=== PATIENT | female | born 1985 | race American Indian/Alaskan Native ===

== ENCOUNTER 2020-05-26 10:17 | Outpatient (REF) | payer OTHER, SELFPAY ==
[2020-05-26 11:34] LABS: MANUAL DIFF FLAG NO
[2020-05-26 11:53] LABS: Basophils Percent Auto 0.5 % (0-2); Eosinophils Absolute Auto 0.1 X10*3/uL (0.0-0.4); Eosinophils Percent Auto 1.2 % (0-4); Hematocrit 35.3 % (37-47); Hemoglobin 11.2 g/dl (12.0-16.0); Imm Gran Abs Auto 0.01 X10*3/uL (0.00-0.03); Imm Gran Pct Auto 0.2 % (0.0-0.4); Lymphocytes Absolute Auto 1.8 X10*3/uL (1.2-4.9); Mean Corpuscular HGB Conc 31.7 g/dl (31.0-35.0); Mean Corpuscular Hemoglobin 28.9 pg (27.0-33.0); Mean Corpuscular Volume 91.2 fL (80-98); Mean Platelet Volume 9.4 fL (9.4-12.3); Monocytes Absolute Auto 0.7 X10*3/uL (0.1-1.2); Monocytes Percent Auto 11.1 % (2-11); Neutrophils Absolute Auto 3.9 X10*3/uL (2.0-8.3); Platelet Count 252 X10*3/uL (160-400); Red Blood Count 3.87 X10*6/uL (4.20-5.50); Red Cell Distribution Width 13.4 % (11.0-16.0); White Blood Count 6.5 X10*3/uL (4.8-10.8)
[2020-05-26 11:59] LABS: Alanine Aminotransferase 10 U/L (0-31); Albumin Level 4.3 g/dL (3.5-5.0); Alkaline Phosphatase 64 U/L (39-117); Anion Gap 10 (12-20); Aspartate Amino Transferase 15 U/L (5-31); Bilirubin Total 0.6 mg/dL (0.0-1.0); Blood Urea Nitrogen 9 mg/dL (9-16); Calcium 9.2 mg/dL (8.4-10.2); Carbon Dioxide 28 mmol/L (22-29); Chloride 106 mmol/L (96-108); Cholesterol 161 mg/dL; Estimated Glomerular Filt Rate > 60; Glucose Fasting 87 mg/dL (60-99); HDL Cholesterol 66 mg/dL; LDL Cholesterol Calculated 84 mg/dl; Potassium 4.1 mmol/l (3.3-5.1); Sodium 140 mmol/L (135-145); Triglycerides 59 mg/dL
[2020-05-26 12:20] LABS: TSH reflex Free T4 0.26 mIU/mL (0.32-4.0)
[2020-05-26 12:39] LABS: Estimated Average Glucose 85 mg/dL; Hemoglobin A1c % 4.6 %
[2020-05-26 13:04] LABS: Free T4 (Free Thyroxine) 0.98 ng/dL (0.71-1.85)
== END 2020-05-26 10:18 | disposition home or self-care (01) ==
LOC: HO.LAB 10:17
PROVIDERS: PCP Physician Assistant; Visit Provider Physician Assistant
DX: Z00.00 Encounter for general adult medical examination without abnormal findings (principal); R56.9 Unspecified convulsions; R55 Syncope and collapse; Z13.29 Encounter for screening for other suspected endocrine disorder; Z13.1 Encounter for screening for diabetes mellitus
CPT/HCPCS: 36415; 80053; 80061; 83036; 84439; 84443; 85025

== ENCOUNTER 2021-01-08 09:54 | Outpatient (REF) | payer OTHER, SELFPAY ==
[2021-01-08 10:43] LABS: MANUAL DIFF FLAG NO
[2021-01-08 10:46] LABS: Basophils Percent Auto 0.4 % (0-2); Eosinophils Absolute Auto 0.1 X10*3/uL (0.0-0.4); Eosinophils Percent Auto 0.9 % (0-4); Hematocrit 32.4 % (37-47); Hemoglobin 9.9 g/dl (12.0-16.0); Imm Gran Abs Auto 0.01 X10*3/uL (0.00-0.03); Imm Gran Pct Auto 0.1 % (0.0-0.4); Lymphocytes Absolute Auto 1.6 X10*3/uL (1.2-4.9); Lymphocytes Percent Auto 20.4 % (20-40); Mean Corpuscular HGB Conc 30.6 g/dl (31.0-35.0); Mean Corpuscular Hemoglobin 25.8 pg (27.0-33.0); Mean Corpuscular Volume 84.6 fL (80-98); Mean Platelet Volume 9.2 fL (9.4-12.3); Monocytes Absolute Auto 0.9 X10*3/uL (0.1-1.2); Monocytes Percent Auto 10.9 % (2-11); Neutrophils Absolute Auto 5.3 X10*3/uL (2.0-8.3); Neutrophils Percent Auto 67.3 % (45-73); Platelet Count 319 X10*3/uL (160-400); Red Blood Count 3.83 X10*6/uL (4.20-5.50); Red Cell Distribution Width 13.3 % (11.0-16.0); White Blood Count 7.9 X10*3/uL (4.8-10.8)
[2021-01-08 11:10] LABS: Anion Gap 10 (12-20); Blood Urea Nitrogen 10 mg/dL (9-16); Carbon Dioxide 27 mmol/L (22-29); Chloride 105 mmol/L (96-108); Estimated Glomerular Filt Rate > 60; Glucose Random 88 mg/dL (60-115); Potassium 4.4 mmol/L (3.3-5.1); Sodium 138 mmol/L (135-145)
== END 2021-01-08 09:55 | disposition home or self-care (01) ==
LOC: HO.LAB 09:54
PROVIDERS: PCP Physician Assistant; Visit Provider Internal Medicine
DX: Z00.00 Encounter for general adult medical examination without abnormal findings (principal); R51.9 Headache, unspecified
CPT/HCPCS: 36415; 80048; 85025

== ENCOUNTER 2021-02-22 14:44 | Outpatient (REF) | payer OTHER, SELFPAY ==
[2021-02-22 15:40] LABS: Hematocrit 30.7 % (37-47); Hemoglobin 9.4 g/dl (12.0-16.0); Mean Corpuscular HGB Conc 30.6 g/dl (31.0-35.0); Mean Corpuscular Hemoglobin 24.9 pg (27.0-33.0); Mean Corpuscular Volume 81.4 fL (80-98); Platelet Count 356 X10*3/uL (160-400); Red Blood Count 3.77 X10*6/uL (4.20-5.50); Red Cell Distribution Width 13.8 % (11.0-16.0); White Blood Count 6.4 X10*3/uL (4.8-10.8)
[2021-02-22 15:56] LABS: Anion Gap 12 (12-20); Blood Urea Nitrogen 8 mg/dL (9-16); Calcium 9.3 mg/dL (8.4-10.2); Carbon Dioxide 25 mmol/L (22-29); Chloride 106 mmol/L (96-108); Estimated Glomerular Filt Rate > 60; Glucose Random 89 mg/dL (60-115); Iron 25 mcg/dL (30-160); Percent Iron Saturation 5 % (15-50); Potassium 4.5 mmol/L (3.3-5.1); Sodium 138 mmol/L (135-145); Total Iron Binding Capacity 526 mcg/dL (228-428); Unsaturated Iron Binding 501 ug/dL
[2021-02-22 16:17] LABS: TSH reflex Free T4 1.02 uIU/mL (0.32-4.0); Vitamin D 25-OH Total 33.4 ng/mL (>30)
== END 2021-02-22 14:45 | disposition home or self-care (01) ==
LOC: HO.LAB 14:44
PROVIDERS: PCP Physician Assistant; Visit Provider Physician Assistant
DX: D50.9 Iron deficiency anemia, unspecified (principal); D64.9 Anemia, unspecified; I10 Essential (primary) hypertension; E16.2 Hypoglycemia, unspecified; Z98.84 Bariatric surgery status
CPT/HCPCS: 36415; 80048; 82306; 83540; 84443; 85027

== ENCOUNTER 2021-02-23 09:03 | Outpatient (REF) | payer OTHER, SELFPAY ==
--- NOTE | ~2021-02-23 | CT_ITS ---
EXAMINATION: CT ABDOMEN AND PELVIS WITH CONTRAST CLINICAL INFORMATION: Epigastric pain COMPARISON: None TECHNIQUE: Multidetector volumetric images were obtained from the superior aspect of the liver through the pubic symphysis following administration 85 mL of Omnipaque 350 intravenous contrast. Sagittal and coronal reformatted images were obtained on the technologist's workstation. Oral contrast: No This CT examination was performed using dose optimization techniques as appropriate, variously including the following: *Automated exposure control *Adjustment of mA and/or kV according to patient size (this includes techniques or standardized protocols for targeted exams where dose is matched to indication/reason for exam; i.e. extremities or head) *Use of iterative reconstruction technique DLP: 399 mGy-cm FINDINGS: LUNG BASES: The visualized lung bases are unremarkable. LIVER, GALLBLADDER, AND BILIARY TREE: The liver is normal in size, shape, and attenuation. No focal hepatic lesion or biliary ductal dilatation is present. The gallbladder is unremarkable with no evidence of radiopaque gallstones, gallbladder wall thickening, or obvious pericholecystic inflammatory changes. PANCREAS: Unremarkable. SPLEEN: Unremarkable. ADRENAL GLANDS: Unremarkable. KIDNEYS AND URETERS: The kidneys are normal in size, shape, and attenuation. No hydronephrosis, hydroureter, or calculi seen. No perinephric stranding. BLADDER: Unremarkable. GASTROINTESTINAL TRACT: There is moderate scattered stool seen throughout the colon without significant distention. The small bowel loops are opacified with oral contrast and are nondilated. There are gastric sleeve surgery changes. No free air or free fluid.. ABDOMINAL WALL: No significant hernia is appreciated. LYMPH NODES: Normal. VASCULAR: Unremarkable. PELVIC VISCERA: The uterus is anteverted and appears unremarkable. No adnexal mass seen. There is minimal free fluid in the left cul-de-sac. OSSEOUS STRUCTURES: No lytic or sclerotic process seen. CT/CT abdomen pelvis w con IMPRESSION: Moderate constipation. No acute process. Evidence of gastric sleeve surgery.
[2021-02-23] MEDS: iohexoL 350 MG/ML 100 ML INFUS..BTL 85 ML IV (11:26)
== END 2021-02-23 09:04 | disposition home or self-care (01) ==
LOC: HO.CT 09:03
PROVIDERS: PCP Physician Assistant; Visit Provider Physician Assistant
DX: R10.13 Epigastric pain (principal); Z98.84 Bariatric surgery status
CPT/HCPCS: 74177; Q9967

== ENCOUNTER 2022-11-25 15:20 | Outpatient (REF) | payer OTHER, SELFPAY ==
--- NOTE | ~2022-11-25 | US_ITS ---
EXAM: US EXTREMITY NONVASCULAR LIMITED COMPARISON: None TECHNIQUE: Sonographic evaluation of the area of concern in the right upper arm was obtained. was performed. FINDINGS: Responding to the area of palpable concern is a 4.9 x 1.3 x 1.3 cm solid lesion isoechoic to the surrounding fat with no internal vascularity and smooth margins. US/US extremity nonvascular chahal IMPRESSION: 1. A 4.9 cm isoechoic mass with no internal vascularity and smooth margins may reflect a lipomatous lesion. Recommend correlation with physical exam and clinical history.
== END 2022-11-25 15:21 | disposition home or self-care (01) ==
LOC: HO.HMGCX 15:20
PROVIDERS: PCP Physician Assistant; Visit Provider Physician Assistant
DX: D17.20 Benign lipomatous neoplasm of skin and subcutaneous tissue of unspecified limb (principal)
CPT/HCPCS: 76882

== ENCOUNTER 2023-11-29 13:24 | Outpatient (AMB) | payer OTHER, SELFPAY ==
[2023-11-29 13:27] VITALS: BP 102/60; PULSE 57; O2SAT 100; BMI 31.1
--- NOTE | 2023-11-29 13:27 | A.OFFPC_ITS ---
Vital Signs 11/29/23 13:27 Height 5 ft 6 in Weight 192 lb 8 oz BMI 31.1 BP 102/60 Blood Pressure Location Lt brachial Position Sitting Pulse 57 Pulse Source Pulse Oximeter Pulse Oximetry (%) 100 Oxygen Delivery Method Room Air Intake Visit Reasons: pe Intake Note: Patient is here today for a physical. 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 Accompanied by: Self / Same As Patient Is last menstrual period known: Yes Last menstrual period: 10/31/23 Allergies No Known Allergies Allergy (Verified 11/29/23 13:29) Medication List - Last Reconciled 11/29/23 by Mayur Snyder PA-C cholecalciferol (vitamin D3) 75 mcg (3 x 25 mcg (1,000 unit)) PO DAILY 90 days lactulose 10 grams (15 mL) PO BEDTIME 10 days multivitamin (Daily Multi-Vitamin tablet) 1 tab PO DAILY Tobacco use date assessed: 11/29/23 Dental Screening Dental Screen Date: 11/29/23 Did you have a dental visit in the last 12 months?: Yes Did you have a dental problem in the last 6 months where you did not have access to dental care?: No Was dental information given to patient?: Patient has dentist HPI pe HPI Details Deanna is a 38 y/o F here today for a PE visit. ? Patient has a past medical history significant for history of bariatric surgery, former smoker .. Concerns-->?having increased anxiety and depression due to stress on her her personal life. She reports she is working and doing online school. She has a mother of multiple children. She otherwise denies any SI or HI. She is interested in mental health therapy. .. History of bariatric surgery: Has a history bariatric surgery in 2019, unfortunately gaining weight back. Today's BMI of 31.1 ? .. ? ASSEMBLER INSTALLER GENERAL: DOes go to a ASSEMBLER INSTALLER GENERAL at [facility] ( Dr. Aponte)- PAP in 08/2019 was normal.? Vaccine: UTD tdap, up-to-date with COVID vaccines ? PFSH Medical History (Updated 11/29/23 @ 14:07 by Mayur Snyder PA-C) Lipoma of upper arm Surgical History History of bariatric surgery History of section Family History Father No problems noted. Mother No problems noted. Maternal Aunt Breast cancer Maternal Grandfather Gastric cancer Social History (Updated 11/29/23 @ 13:42 by Mayur Snyder PA-C) Housing: Apartment Alcohol intake: current Alcohol intake frequency: holidays/special occasions only Patient Tobacco Use Status: Former Tobacco user Quit Date: 2018 e-Cigarette/Vaping Use: Never Used Second Hand Smoke Exposure: No Substance Use Type: Marijuana service: No Current occupational status: employed and student Current occupation: Title and Recording speciality Cognitive needs: No Hearing needs: No Vision needs: Yes (glasses) Female Reproductive History Menstrual Date of last menstrual period: 10/31/23 Questionnaire PHQ-9 Over the last 2 weeks, how often have you been bothered by any of the following problems? 1. Little interest or pleasure in doing things: nearly every day 2. Feeling down, depressed, or hopeless: not at all 3. Trouble falling or staying asleep, or sleeping too much: more than half the days 4. Feeling tired or having little energy: more than half the days 5. Poor appetite or overeating: more than half the days 6. Feeling bad about yourself - or that you are a failure or have let yourself or your family down: not at all 7. Trouble concentrating on things, such as reading the newspaper or watching television: not at all 8. Moving or speaking so slowly that other people could have noticed. Or the opposite - being so fidgety or restless that you have been moving around a lot more than usual: not at all 9. Thoughts that you would be better off or of hurting yourself in some way: not at all Total score: 9 Depression Screening Interpretation: Positive Depression Screening Follow-up: Existing condition and Community Mental Health Worker F/U Depression Screening Done: Yes 77169 - PHQ-9 Billing: Yes Source: Developed by Drs. Noah Greenwood, Esperanza Ayala, Isaac Robles and colleagues, with an educational meli from [employer]. Thrive Questionnaire Date Thrive assessed: 11/29/23 I am a: Patient What is your living situation today?: I have a steady place to live Within the past 12 months, did the food you bought not last and you didn't have the money to get more?: Never true Within the past 12 months, did you worry whether your food would run out before you got money to buy more?: Never true Do you have trouble paying for medicines?: No Do you have trouble getting transportation to medical appointments?: No Do you have trouble paying your heating and electricity bill?: No Do you have trouble taking care of your child, family member or friend?: No Do you have trouble with day-to-day activities such as bathing, preparing meals, shopping, managing finances, etc.?: No Are you currently unemployed and looking for a job?: No Are you interested in more education?: No Please select the resources that you would like help with: None Currently or been in a relationship where the following occur: no concerns reported THRIVE Score: 0 AUDIT C Alcohol Use Questionnaire (AUDIT-C) 1. How often do you have a drink containing alcohol?: Never 3. How often do you have six or more drinks on one occasion?: Never Total Score: 0 JHONY-7 AMB Questionnaire JHONY-7 Date JHONY - 7 assessed: 11/29/23 Feeling nervous, anxious, or on edge: 1 = Several days Not being able to stop or control worryin = Not at all Worrying too much about different things: 3 = Nearly every day Trouble relaxin = More than half the days Being so restless that it is hard to sit still: 0 = Not at all Becoming easily annoyed or irritable: 2 = More than half the days Feeling afraid as if something awful might happen: 0 = Not at all Total JHONY-7 score (0-4 normal; 5-9 mild; 10-14 moderate; 15-21 severe): 8 Source: Developed by Drs. Noah Greenwood, Esperanza Ayala, Isaac Robles and colleagues, with an educational meli from [employer]. JHONY-7 Assessment Billing JHONY-7 Assessment Tool: JHONY-7 Assessment 20195 Review of Systems Const Denies body aches, Denies chills, Denies excessive sweating, Denies fatigue, Denies fever(s) and Denies headache(s) Eyes Denies blurry vision ENT Denies dysphagia, Denies vertigo, Denies dizziness, Denies headache(s), Denies hearing loss and Denies tinnitus Card Denies chest pain, Denies chest pain with activity, Denies syncope, Denies irregular heart rhythm and Denies dyspnea Resp Denies chest congestion, Denies cough, Denies hemoptysis, Denies dyspnea and Denies wheezing GI Denies abdominal pain, Denies melena, Denies hematochezia, Denies coffee ground emesis, Denies dysphagia, Denies diarrhea, Denies nausea and Denies vomiting Denies urinary frequency, Denies dysuria, Denies urinary hesitancy and Denies urinary urgency Musc Denies arthralgias, Denies limited range of motion, Denies muscle cramps and Denies muscle weakness Skin/Breast Denies rash and Denies skin ulcer Neuro Denies Abnormal speech present, Denies confusion, Denies vertigo, Denies dizziness, Denies syncope, Denies headache(s), Denies memory loss and Denies seizure-like activity Psych Denies anxiety, Denies confusion, Denies depression, Denies memory loss, Denies panic attacks and Denies paranoia Endo Denies excessive sweating, Denies fatigue, Denies flushing, Denies polydipsia and Denies polyuria Aller/Immun Denies wheezing Physical exam (Primary Care) Vital Signs: Oxygen Delivery Method Room Air 11/29/23 13:27 BMI result Body Mass Index 31.1 Tobacco/Smoking Status: Tobacco use Status Tobacco use date assessed 11/29/23 11/29/23 13:30 Patient Tobacco Use Status Former Tobacco user 11/29/23 13:28 e-Cigarette/Vaping Use Never Used 11/29/23 13:28 Depression Screening Interpretation: Positive Depression Screening Follow-up: Existing condition and Community Mental Health Worker F/U Thrive Assessment: Date of Thrive Assessment Date Thrive assessed 11/22/22 11/29/23 13:28 Currently or been in a relationship where the following occur: no concerns reported Const General: cooperative, comfortable, no acute distress, alert and awake; No confusion Orientation/consciousness: oriented to person, oriented to place, patient oriented x3 and No confusion HENMT Head: Yes normocephalic Ears: external ears normal and TM's normal bilaterally Face and sinus: No sinus tenderness Mouth: Normal oral and palatal mucosa present and tongue normal Teeth and gingiva: dentition normal and gingiva normal Throat: Yes posterior oropharynx normal, Yes tonsils normal and Yes uvula midline Eyes Conjunctivae: conjunctivae normal Sclerae: sclerae normal Pupils: Equal, round and reactive pupils present EOM: EOMs intact bilaterally Direct Ophthalmoscopy: No no photophobia Neck Neck: Yes no lymphadenopathy, No tender and Yes no JVD Thyroid: Thyroid normal Carotids: no bruits Chest Chest palpation & inspection: no tenderness Resp Effort & Inspection: normal respiratory effort, no audible wheezes, not labored and no stridor Auscultation: no crackles, no rales, no rhonchi and no wheezes Cardio Jugular venous distension: no JVD Rate: regular rate, not bradycardic and not tachycardic Rhythm: regular rhythm Bruits: no carotid bruits Peripheral pulses: Peripheral pulses 2+ throughout GI Inspection: Yes normal to inspection, No abdominal wall ecchymosis and No visible herniation Palpation (GI): Soft to palpation, nontender, no guarding, not rigid and No hepatosplenomegaly present Auscultation: normoactive bowel sounds General: Yes no CVA tenderness Back/Spine/Pelvis Back: no CVA tenderness and No back tenderness Cervical Spine: cervical ROM normal Thoracic/Lumbar Spine: thoracic and lumbar spine normal to inspection, straight leg raise negative bilaterally, No thoraco-lumbar ROM limited and No lumbar spinal tenderness Skin Lesions: no lesions Rashes: no rashes Wounds: no wounds Neuro General: oriented to person, oriented to place, patient oriented x3, CN's II-XI intact bilaterally and No confusion Cranial nerves: Yes Equal, round and reactive pupils present and Yes Normal accommodation reflex present Cognition (Neuro): normal cognition Speech: No Abnormal speech present Gait exam (Neuro): Normal gait present Motor exam (neuro): 5/5 motor strength present throughout Extrem Right upper extremity: full ROM; no cyanosis Left upper extremity: full ROM; no cyanosis Right lower extremity: no edema Left lower extremity: no edema Psych Appearance: grossly normal Mental Status: mental status grossly normal Affect: normal affect Attitude: cooperative Thought process: Normal thought process present Assessment and Plan Assessment & Plan (1) Annual physical exam: Code(s): Z00.00 - Encounter for general adult medical examination without abnormal findings (2) JHONY (generalized anxiety disorder): Code(s): F41.1 - Generalized anxiety disorder Plan: Patient's JHONY-7 score positive for anxiety. She has not interested in medication though is interested in cognitive behavioral therapy. Will refer to counseling. (3) Screening for diabetes mellitus (DM): Code(s): Z13.1 - Encounter for screening for diabetes mellitus (4) History of bariatric surgery: Comment: Patient history of bariatric surgery in 2019 Code(s): Z98.84 - Bariatric surgery status Plan: She is status post bariatric surgery in 2019. Unfortunately gained weight back due to stress and anxiety. (5) MDD (major depressive disorder), recurrent episode, moderate: Code(s): F33.1 - Major depressive disorder, recurrent, moderate Plan: Patient's PHQ-9 score positive. She has been under a lot of stress which is causing her to be somewhat depressed. denies being suicidal or homicidal. Not interested medication at this time. He is interested in mental health therapy. Orders: Orders TSH reflex Free T4 Today R79.89 - Other specified abnormal findings of blood chemistry Complete Blood Count no Diff Today Z98.84 - Bariatric surgery status Comprehensive Ceres. Panel Fast Today Z13.1 - Encounter for screening for di abetes mellitus Referrals Counseling Referral F41.1 - Generalized anxiety disorder Patient Instructions: Goals: Control her stress, lose weight Barriers: Lack of time due to busy work and lifestyle, Coding Level of Care Code Est Pt Level 4 (07563) Est Pt Prev Care 18-39y(18135) Diagnoses Annual physical exam Z00.00 JHONY (generalized anxiety disorder) F41.1 Screening for diabetes mellitus (DM) Z13.1 History of bariatric surgery Z98.84 MDD (major depressive disorder), recurrent episode, moderate F33.1 Additional Codes JHONY-7 Assessment Billing - JHONY-7 Assessment Tool: JHONY-7 Assessment 95200 ([id number])
== END 2023-11-29 13:56 | disposition home or self-care (01) ==
PROVIDERS: Visit Provider Physician Assistant
DX: Z00.00 Encounter for general adult medical examination without abnormal findings (principal); F33.1 Major depressive disorder, recurrent, moderate; F41.1 Generalized anxiety disorder; Z98.84 Bariatric surgery status
CPT/HCPCS: 99213; 99395

== ENCOUNTER 2024-05-28 10:03 | Outpatient (REF) | payer OTHER, SELFPAY ==
[2024-05-28 11:33] LABS: Hematocrit 35.6 % (37.0-47.0); Hemoglobin 11.5 g/dl (12.0-16.0); Mean Corpuscular HGB Conc 32.3 g/dl (31.0-35.0); Mean Corpuscular Hemoglobin 28.4 pg (27.0-33.0); Mean Corpuscular Volume 87.9 fL (80.0-98.0); Mean Platelet Volume 8.9 fL (9.4-12.3); Platelet Count 348 X10*3/uL (160-400); Red Blood Count 4.05 X10*6/uL (4.20-5.50); Red Cell Distribution Width 13.4 % (11.0-16.0); White Blood Count 6.4 X10*3/uL (4.8-10.8)
[2024-05-28 12:15] LABS: Alanine Aminotransferase 11 U/L (0-31); Albumin Level 4.3 g/dL (3.5-5.0); Alkaline Phosphatase 61 U/L (39-117); Anion Gap 9 (12-20); Aspartate Amino Transferase 17 U/L (5-31); Bilirubin Total 0.6 mg/dL (0.0-1.0); Blood Urea Nitrogen 10 mg/dL (9-16); Calcium 9.1 mg/dL (8.4-10.2); Carbon Dioxide 27 mmol/L (22-29); Chloride 106 mmol/L (96-108); Estimated Glomerular Filt Rate > 60; Glucose Fasting 88 mg/dL (60-99); Iron 31 mcg/dL (30-160); Percent Iron Saturation 8 % (15-50); Potassium 3.8 mmol/L (3.3-5.1); Sodium 138 mmol/L (135-145); Total Iron Binding Capacity 390 mcg/dL (228-428); Total Protein 7.3 g/dL (6.5-8.0); Unsaturated Iron Binding 359 ug/dL
[2024-05-28 12:38] LABS: TSH reflex Free T4 1.48 uIU/mL (0.32-4.0); Vitamin D 25-OH Total 30.5 ng/mL (>30)
[2024-05-28 12:49] LABS: Folate 16.8 ng/mL (> or = 4.0); Vitamin B12 676 pg/mL (200-900)
[2024-05-31 01:12] LABS: Zinc 67 mcg/dL (60-130)
== END 2024-05-28 10:04 | disposition home or self-care (01) ==
LOC: HO.LAB 10:03
PROVIDERS: PCP Physician Assistant; Visit Provider Physician Assistant
DX: Z13.1 Encounter for screening for diabetes mellitus (principal); Z23 Encounter for immunization; D50.9 Iron deficiency anemia, unspecified; F33.1 Major depressive disorder, recurrent, moderate; E53.8 Deficiency of other specified B group vitamins; R79.89 Other specified abnormal findings of blood chemistry; Z98.84 Bariatric surgery status; D17.21 Benign lipomatous neoplasm of skin and subcutaneous tissue of right arm
CPT/HCPCS: 36415; 80053; 82306; 82607; 82746; 83540; 84443; 84630; 85027; 90471; 90656; 99212

== ENCOUNTER 2024-05-28 10:03 | Outpatient (AMB) | payer OTHER, SELFPAY ==
--- NOTE | 2024-05-28 10:15 | A.OFFPC_ITS ---
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 She has noted a lump over her right arm OVER THE LAST 3 YEARS. DID GET BARIATRIC SURGERY AND HAS LOST WEIGHT IN THE RIGHT UPPER ARM MASS HAS BECOME MORE NOTICEABLE. She is now interested in having the lump evaluated and removed by general surgeon. [facility] Medical History Lipoma of upper arm Surgical History History of bariatric surgery History of section Family History Father No problems noted. Mother No problems noted. Maternal Aunt Breast cancer Maternal Grandfather Gastric cancer Social History Housing: Apartment Alcohol intake: current Alcohol intake frequency: holidays/special occasions only Patient Tobacco Use Status: Former Tobacco user e-Cigarette/Vaping Use: Never Used Second Hand Smoke Exposure: No Substance Use Type: Marijuana service: No Current occupational status: employed and student Current occupation: Title and Recording speciality Cognitive needs: No Hearing needs: No Vision needs: Yes (glasses) Questionnaire Thrive Questionnaire Date Thrive assessed: 11/29/23 Are you currently unemployed and looking for a job?: No JHONY-7 AMB Questionnaire JHONY-7 Date JHONY - 7 assessed: 11/29/23 Source: Developed by Drs. Noah Greenwood, Esperanza Ayala, Isaac Robles and colleagues, with an educational meli from [employer]. Review of Systems Const Denies headache(s) Eyes Denies loss of vision ENT Denies vertigo, Denies dizziness, Denies headache(s) and Denies sore throat Card Denies chest pain, Denies leg edema and Denies lightheadedness Resp Denies cough, Denies hemoptysis and Denies wheezing GI Denies abdominal pain, Denies melena, Denies constipation, Denies diarrhea and Denies vomiting Denies urinary frequency, Denies dysuria and Denies urinary urgency Musc Denies arthralgias, Denies joint swelling, Denies numbness and Denies tingling Neuro Denies Abnormal speech present, Denies behavioral changes, Denies vertigo, Denies dizziness, Denies headache(s), Denies loss of vision, Denies memory loss, Denies numbness and Denies tingling Psych Denies anxiety, Denies behavioral changes, Denies depression, Denies memory loss and Denies panic attacks Mark/Lymph Denies easy bleeding and Denies easy bruising Aller/Immun Denies wheezing Physical exam (Primary Care) Vital Signs: Last Vital Signs Pulse 51 05/28/24 10:17 BP 106/68 05/28/24 10:17 Pulse Ox 98 05/28/24 10:17 Oxygen Delivery Method Room Air 05/28/24 10:17 BMI result Body Mass Index 29.9 Tobacco/Smoking Status: Tobacco use Status Tobacco use date assessed 11/29/23 05/28/24 10:21 Patient Tobacco Use Status Former Tobacco user 05/28/24 10:21 e-Cigarette/Vaping Use Never Used 05/28/24 10:21 Thrive Assessment: Date of Thrive Assessment Date Thrive assessed 11/29/23 05/28/24 10:21 Const General: healthy appearing, no acute distress, alert and awake Nutritional Appearance: well nourished Orientation/consciousness: oriented to person, oriented to place and oriented to time HENMT Ears: TM's normal bilaterally General nose exam: Normal nasal mucous membranes and turbinates present Eyes Conjunctivae: conjunctivae normal Sclerae: sclerae normal Pupils: Equal, round and reactive pupils present Neck Neck: Yes no lymphadenopathy and Yes no JVD Thyroid: Thyroid normal Carotids: no bruits Resp Effort & Inspection: normal respiratory effort and not tachypneic Auscultation: no crackles, no rales, no rhonchi and no wheezes Cardio Rate: regular rate Rhythm: regular rhythm Heart sounds: no murmurs and normal S1 and S2 GI Palpation (GI): Soft to palpation, nontender, no hepatomegaly and no splenomegaly Auscultation: normal bowel sounds Skin General skin exam: no rashes or lesions noted and dry skin Neuro General: oriented to person, oriented to place and oriented to time Cranial nerves: Yes Equal, round and reactive pupils present Speech: No Abnormal speech present Gait exam (Neuro): Normal gait present Motor exam (neuro): no tremor noted Extrem Right upper extremity: full ROM Left upper extremity: full ROM Shoulder/upper arm images: 2 1. LARGE SUBCUTANEOUS SOFT NONTENDER MASS NOTED OVER THE DELTOID REGION OF THE RIGHT UPPER ARM Right lower extremity: full ROM; no edema Left lower extremity: full ROM; no edema Psych Mental Status: mental status grossly normal Speech and movement: Normal speech and movement present Affect: normal affect Attitude: cooperative Thought process: Normal thought process present Office Procedures Flu Questionnaire Does the patient have a severe egg allergy?: No Does the patient have severe life threatening allergies?: No Does the patient have a fever or illness today?: No Has the patient ever had Guillain-Hays Syndrome?: No Has the patient ever had any past reaction to a flu shot?: No Immunizations Fluarix Triv [id number] (PF) 45 mcg (15 mcg x 3)/0.5 mL IM syringe Performing Provider: Mayur Snyder PA-C Performing Location[facility] [place] [facility] Administered by: MELANIE Alberts on 05/28/24 10:23 2 Dose Route Admin Location Dispensed Lot Number Expiration Date [employer] 0.5 mL IM Left Deltoid 0.5 mL [id number] 02/10/25 [id number] [place] 2 VIS Given Date VIS Provided VIS Publication Date 05/28/24 Single Vaccine 21 Eligibility Eligibility Date Funding Source Not [facility] Eligible 05/28/24 Private Coding Level of Care Code Est Pt Level 3 (72816) Diagnoses Lipoma of right upper extremity D17. Chronic fatigue R53.82 Fatigue type: chronic, unspecified Assessment & Plan Assessment & Plan (1) Lipoma of right upper extremity: Code(s): D17.21 - Benign lipomatous neoplasm of skin and subcutaneous tissue of right arm Category: Medical Plan: Patient has a large mass over her right upper arm consistent with a lipoma. Will send to general surgeon for evaluation perhaps removal. (2) Fatigue: Code(s): R53.83 - Other fatigue Category: Medical Qualifiers: Fatigue type: chronic, unspecified Qualified Code(s): R53.82 - Chronic fatigue, unspecified Plan: Patient does report having some chronic fatigue to which she would like to check her vitamin levels. Of note she has been under lot of stress due to being a full-time mom and student along with working part-time Orders: Orders 2 Influenza [id number] Immunization Today Z23 - Encounter for immunization IRON PROFILE Today D50.9 - Iron deficiency anemia, unspecified, D64.9 - Anemia, unspecified Vitamin D 25-OH Total Today F33.1 - Major depressive disorder, recurrent, moderate Zinc Today R79.89 - Other specified abnormal findings of blood chemistry Vitamin B12 and Folate Today D64.9 - Anemia, unspecified, E53.8 - Deficiency of other specified B group vitamins Referrals 2 General Surgery Referral D17.21 - Benign lipomatous neoplasm of skin and subcutaneous tissue of right arm
[2024-05-28 10:16] VITALS: BMI 29.9
[2024-05-28 10:17] VITALS: BP 106/68; PULSE 51; O2SAT 98; BMI 29.9
== END 2024-05-28 11:30 | disposition home or self-care (01) ==
PROVIDERS: PCP Physician Assistant; Visit Provider Physician Assistant
DX: D17.21 Benign lipomatous neoplasm of skin and subcutaneous tissue of right arm (principal); R53.82 Chronic fatigue, unspecified; Z23 Encounter for immunization

== ENCOUNTER 2024-06-07 09:52 | Outpatient (AMB) | payer OTHER, SELFPAY ==
--- NOTE | 2024-06-07 09:53 | MHC.OFFVIS ---
Vital Signs 06/07/24 09:59 Height 5 ft 6 in Weight 184 lb BMI 29.7 BP 134/63 Blood Pressure Location Lt brachial Position Sitting Pulse 67 Intake Visit Reasons: Lipoma right arm Intake Note: Patient is seen in office for evaluation of a lipoma of the right arm. Pt c/o: onset 3yrs, bigger since weight loss, denies pain, redness, discharge, no prior ones ref [place] [employer] Required: No Accompanied by: Self / Same As Patient Allergies No Known Allergies Allergy (Verified 06/07/24 09:58) Medication List - Last Reconciled 06/07/24 by Riccardo Huston MD cholecalciferol (vitamin D3) 75 mcg (3 x 25 mcg (1,000 unit)) PO DAILY 90 days lactulose 10 grams (15 mL) PO BEDTIME 10 days multivitamin (Daily Multi-Vitamin tablet) 1 tab PO DAILY HPI Comments Details: 38-year-old female patient presenting with a soft tissue mass of the right shoulder. The lump was initially noted a proximally 3 years ago and has gradually increased in size. She reports undergoing a sleeve gastrectomy in his subsequently lost a significant amount of weight. This makes the lump more noticeable as well. He has requested excision of this large lipoma. She denies a history of trauma or surgery in this location. [facility] Medical History Lipoma of upper arm Surgical History History of bariatric surgery History of section Family History Father No problems noted. Mother No problems noted. Maternal Aunt Breast cancer Maternal Grandfather Gastric cancer Social History Housing: Apartment Alcohol intake: current Alcohol intake frequency: holidays/special occasions only Patient Tobacco Use Status: Former Tobacco user e-Cigarette/Vaping Use: Never Used Second Hand Smoke Exposure: No Substance Use Type: Marijuana service: No Current occupational status: employed and student Current occupation: Title and Recording speciality Cognitive needs: No Hearing needs: No Vision needs: Yes (glasses) Review of Systems Const All systems reviewed & are unremarkable except as noted in HPI and below Denies chills, Denies fever(s), Denies headache(s), Denies poor appetite and Denies weakness ENT Denies headache(s) Card Denies chest pain, Denies irregular heart rhythm, Denies palpitations and Denies dyspnea Resp Denies cough, Denies excessive phlegm production and Denies dyspnea GI Denies abdominal pain, Denies bloating, Denies change in bowel habits, Denies constipation, Denies heartburn, Denies diarrhea, Denies nausea and Denies vomiting Denies urinary frequency Musc Denies back pain, Denies muscle weakness and Denies numbness Skin/Breast Denies changing lesions and Denies unusual bruising Neuro Denies headache(s), Denies numbness, Denies paresthesias and Denies weakness Psych Denies anxiety and Denies depression Endo Denies palpitations Mark/Lymph Denies lymphadenopathy Physical Exam Vital Signs: Last Vital Signs Pulse 67 06/07/24 09:59 BP 134/63 06/07/24 09:59 BMI result Body Mass Index 29.7 Const General: cooperative and no acute distress Nutritional Appearance: well nourished Orientation/consciousness: patient oriented x3 Limitations: no limitations HEENT Head: Yes normocephalic and Yes atraumatic Ears: hearing grossly normal bilaterally Resp Effort & Inspection: normal respiratory effort, no audible wheezes, no cough and no respiratory distress Cardio Jugular venous distension: no JVD GI Inspection: Yes normal to inspection Skin Other: Warm, dry, no rash Neuro General: patient oriented x3 Extrem General: Yes no clubbing, cyanosis or edema Shoulder/upper arm images: 1. 5 cm round, mobile soft tissue mass within the subcutaneous tissue, with no overlying skin changes. Findings suggestive of a lipoma. Assessment & Plan Assessment & Plan (1) Lipoma of right upper extremity: Code(s): D17.21 - Benign lipomatous neoplasm of skin and subcutaneous tissue of right arm Category: Medical Plan 38-year-old female patient with a soft tissue mass of the right shoulder which has increased in size especially after undergoing bariatric surgery. Patient has requested excision. On examination she is found to have a 5 cm soft tissue mass in the right shoulder over the deltoid muscle suggestive of a lipoma. I recommended an excision as a short-stay surgery and after discussion of the procedure, risks, and alternatives, she consents to excision of the right shoulder lipoma. Coding Level of Care Code New Pt Level 4 (97285) Diagnoses Lipoma of right upper extremity D17.21
[2024-06-07 09:59] VITALS: BP 134/63; PULSE 67; BMI 29.7
== END 2024-06-07 10:16 | disposition home or self-care (01) ==
PROVIDERS: PCP Physician Assistant; Visit Provider Surgery
DX: D17.21 Benign lipomatous neoplasm of skin and subcutaneous tissue of right arm (principal)
CPT/HCPCS: 99204

== ENCOUNTER → 2024-06-07 09:52 | Outpatient (BNVA) | payer OTHER, SELFPAY | PROVIDERS: PCP Physician Assistant; Visit Provider Surgery | DX: D17.21 Benign lipomatous neoplasm of skin and subcutaneous tissue of right arm (principal) | CPT/HCPCS: 99202 ==

== ENCOUNTER 2024-06-26 09:12 | Day surgery (SDC) | payer OTHER, SELFPAY ==
--- NOTE | 2024-06-25 10:34 | HO.ANESPROP2 ---
Documented by User: Lucy Gtz NP 06/25/24 10:35 HPI - Anesthesia Eval Consult details Narrative: 38yo F for Excision Lipoma on Shoulder PMFSH Active Problems Active Problems: All Active Problems Fatigue (Acute) Lipoma of right upper extremity (Acute) MDD (major depressive disorder), recurrent episode, moderate (Acute) JHONY (generalized anxiety disorder) (Acute) Constipation (Acute) History of bariatric surgery (Acute) Low TSH level (Acute) Low hemoglobin (Acute) Screening for hypothyroidism (Acute) Screening for diabetes mellitus (DM) (Acute) Annual physical exam (Acute) Past Medical History Medical History Lipoma of upper arm Family History Family History Father No problems noted. Mother No problems noted. Maternal Aunt Breast cancer Maternal Grandfather Gastric cancer Surgical History Surgical History (Updated 06/26/24 @ 09:56 by Krysta Patel RN) Hx of tubal ligation History of bariatric surgery History of section Social History Social History Housing: Apartment Alcohol intake: current Alcohol intake frequency: holidays/special occasions only Patient Tobacco Use Status: Former Tobacco user e-Cigarette/Vaping Use: Never Used Second Hand Smoke Exposure: No Substance Use Type: Marijuana service: No Current occupational status: employed and student Current occupation: Title and Recording speciality Cognitive needs: No Hearing needs: No Vision needs: Yes (glasses) Meds Allergies Allergy/AdvReac Type Severity Reaction Status Date / Time No Known Allergies Allergy Verified 06/26/24 09:57 Home Medications ?Medication ?Instructions ?Recorded ?Confirmed ?Last Taken ?Type multivitamin (Daily Multi-Vitamin 1 tab PO DAILY 11/22/22 06/26/24 Unknown History tablet) Exam Pertinent Lab Results Pertinent Lab Results: Laboratory Tests 05/28/24 10:57 WBC 6.4 Hgb 11.5 L Hct 35.6 L Plt Count 348 Sodium 138 Potassium 3.8 Chloride 106 Carbon Dioxide 27 BUN 10 Creatinine 0.79 Assessment and Plan Assessment Anesthesia Assessment: Chart Reviewed Documented by User: Jose Cruz Amin MD 06/26/24 10:22 [facility] Past Medical History Medical History Lipoma of upper arm Patient : No Family History Family History Father No problems noted. Mother No problems noted. Maternal Aunt Breast cancer Maternal Grandfather Gastric cancer Family history of problems with anesthesia: No Surgical History Surgical History (Updated 06/26/24 @ 09:56 by Krysta Patel RN) Hx of tubal ligation History of bariatric surgery History of section History of Problems with Anesthesia: No Social History Social History Housing: Apartment Alcohol intake: current Alcohol intake frequency: holidays/special occasions only Patient Tobacco Use Status: Former Tobacco user e-Cigarette/Vaping Use: Never Used Second Hand Smoke Exposure: No Substance Use Type: Marijuana service: No Current occupational status: employed and student Current occupation: Title and Recording speciality Cognitive needs: No Hearing needs: No Vision needs: Yes (glasses) Meds Allergies Allergy/AdvReac Type Severity Reaction Status Date / Time No Known Allergies Allergy Verified 06/26/24 09:57 Home Medications ?Medication ?Instructions ?Recorded ?Confirmed ?Last Taken ?Type multivitamin (Daily Multi-Vitamin 1 tab PO DAILY 11/22/22 06/26/24 Unknown History tablet) Exam Airway Mallampati Class: II TM Dist: >3cm Neck ROM: Full Loose/Missing/Broken Teeth: No Heart: ok Lungs: ok Assessment and Plan Assessment Anesthesia Assessment: Anesthesia Plan Discussed Final Anesthetic Review Family History of Problems with Anesthesia: No History of Problems with Anesthesia: No NPO: Yes ASA Class: II Final Preanesthetic Review: No Changes in Pt Med Stat, Meds/Allgs Chart Reviewed, Consent Obtained/Reviewed and Anes Risks/Benef Reviewed Patient Risk: Low Procedure Risk: Low Anesthetic Plan Anesthetic Plan: GA and Agree w/ Assess. and Plan Disposition: Standard PACU
[2024-06-26 10:01] VITALS: BMI 29.9
[2024-06-26 10:07] VITALS: BP 117/56; PULSE 56; RESP 16; TEMP 36.7; O2SAT 100
--- NOTE | 2024-06-26 10:08 | MHC.SHP ---
Pre-Procedural Eval Section A - 24 Hr Update-Section A only Date of Service: 06/26/24 The patient is an INPATIENT: No Changes since office visit: Yes Patient answered all questions; No Cold of Flu in the past 2 weeks, No New Medical Problems and No Changes in Medication The patient has been examined within 24 hours of the surgical procedure. The History & Physical has been completed within 30 days and I have reviewed it.: Yes Section B - Complete if H&P > 30 days Chief Complaint: Benign lipomatous neoplasm of skin Allergies: Allergies Allergy/AdvReac Type Severity Reaction Status Date / Time No Known Allergies Allergy Verified 06/26/24 09:57 Plan Diagnosis/Plan: Unchanged I have reviewed the history and physical and performed a pertinent physical examination on my patient. No changes have occurred unless specified. Time Spent With Patient Time: Total time managing care of this patient today ____ minutes.
[2024-06-26] MEDS: Lactated Ringers 1,000 ML 100 ML IVCONT (10:29)
--- NOTE | 2024-06-26 11:09 | P.OP_ITS ---
Operative Note Operative Note Date of Service: 06/26/24 Narrative: Preoperative diagnosis: Lipoma right shoulder Postoperative diagnosis: Same Procedure: Excision lipoma right shoulder Surgeon: Riccardo Huston MD Drafter Electromechanical: Selina Galloway PA-C; Karin Kern PA-C Anesthesia: General LMA Indications for procedure: 38-year-old female patient presenting with a soft tissue mass in the right upper shoulder. Findings are consistent with a lipoma measuring approximately 5 cm in diameter. Operative findings: Lipoma right shoulder, 5 cm diameter Specimen: Lipoma right shoulder Estimated blood loss: Less than 2 mL Complications: None Procedure details: Patient was brought to the OR and placed in a supine position. After administering general anesthesia the patient's right shoulder was prepped with ChloraPrep and draped in a sterile fashion. A surgical time- out was called the consent confirmed. Patient received preoperative antibiotics and Venodyne boots were in place. Local anesthesia consisting of 0.5% Sensorcaine with epinephrine was then infiltrated in a longitudinal fashion over the lipoma. A longitudinal incision was then made with a scalpel carried out through subcutaneous tissue up to the lipoma. This was then grasped with an Allis clamp and sharply dissected from the surrounding subcutaneous tissue. The specimen was removed and sent to pathology for further examination. Hemostasis was assured using electrocautery. Wounds were irrigated with saline solution and suctioned dry.
[2024-06-26 11:25] VITALS: BP 120/67; PULSE 73; RESP 18; TEMP 36.3; O2SAT 100
[2024-06-26 11:30] VITALS: BP 112/74; PULSE 64; RESP 18; O2SAT 100
[2024-06-26 11:35] VITALS: BP 111/74; PULSE 57; RESP 18; O2SAT 100
[2024-06-26 11:40] VITALS: BP 109/57; PULSE 58; RESP 18; TEMP 36.2; O2SAT 100
[2024-06-26 11:55] VITALS: BP 119/76; PULSE 61; RESP 18; TEMP 36.4; O2SAT 100
== END 2024-06-26 12:15 | disposition home or self-care (01) ==
PROVIDERS: PCP Physician Assistant; Visit Provider Surgery
PROC: (CPT 23071; principal; 2024-06-26 11:00)
DX: D17.21 Benign lipomatous neoplasm of skin and subcutaneous tissue of right arm (principal); Z79.899 Other long term (current) drug therapy; Z98.84 Bariatric surgery status; Z87.891 Personal history of nicotine dependence
CPT/HCPCS: 23071; 88304; J0690; J2003; J2704; J3010

== ENCOUNTER → 2024-06-26 09:12 | Outpatient (BNV) | payer OTHER, SELFPAY | PROVIDERS: PCP Physician Assistant; Visit Provider Surgery | DX: D17.21 Benign lipomatous neoplasm of skin and subcutaneous tissue of right arm (principal) | CPT/HCPCS: 23071 ==

== ENCOUNTER 2024-07-05 11:26 | Outpatient (AMB) | payer MEDICAID, SELFPAY ==
--- NOTE | 2024-07-05 11:33 | A.OFFVIS_ITS ---
Vital Signs 07/05/24 11:36 Height 5 ft 6 in Weight 189 lb BMI 30.5 BP 129/63 Blood Pressure Location Lt brachial Position Sitting Pulse 67 Intake Visit Reasons: S/P exc. lipoma Rt shoulder Intake Note: Patient si seen in office for post op assessment post excision lipoma right shoulder. Pt c/o: denies any concerns at the time of visit surgery:06/26/24 Accompanied by: Self / Same As Patient Allergies No Known Allergies Allergy (Verified 07/05/24 11:34) Medication List - Last Reconciled 07/05/24 by Riccardo Huston MD cholecalciferol (vitamin D3) 75 mcg (3 x 25 mcg (1,000 unit)) PO DAILY 90 days lactulose 10 grams (15 mL) PO BEDTIME 10 days multivitamin (Daily Multi-Vitamin tablet) 1 tab PO DAILY oxycodone 5 mg PO Q6H PRN HPI Comments Details: Patient returns 1 week following excision of a lipoma of the right shoulder. She tolerated the procedure well and returns today for wound check. She denies any ongoing symptoms. [facility] Medical History Lipoma of upper arm Surgical History S/P excision of lipoma (06/26/24) Hx of tubal ligation History of bariatric surgery History of section Family History Father No problems noted. Mother No problems noted. Maternal Aunt Breast cancer Maternal Grandfather Gastric cancer Social History Housing: Apartment Alcohol intake: current Alcohol intake frequency: holidays/special occasions only Patient Tobacco Use Status: Former Tobacco user e-Cigarette/Vaping Use: Never Used Second Hand Smoke Exposure: No Substance Use Type: Marijuana service: No Current occupational status: employed and student Current occupation: Title and Recording speciality Cognitive needs: No Hearing needs: No Vision needs: Yes (glasses) Physical Exam Vital Signs: Last Vital Signs Pulse 67 07/05/24 11:36 BP 129/63 07/05/24 11:36 BMI result Body Mass Index 30.5 Const General: comfortable Nutritional Appearance: well nourished Orientation/consciousness: patient oriented x3 Neuro General: patient oriented x3 Extrem Other: Right lateral shoulder with a well-healed incision without redness or discharge. No palpable hematoma or seroma. Assessment & Plan Assessment & Plan (1) Lipoma of right upper extremity: Code(s): D17.21 - Benign lipomatous neoplasm of skin and subcutaneous tissue of right arm Category: Medical Plan 38-year-old female status post excision of a lipoma of the right arm /shoulder. She tolerated the procedure well the wounds are healing nicely. She should follow up as needed. Coding Level of Care Code Global (93796) Diagnoses Lipoma of right upper extremity D17.21
[2024-07-05 11:36] VITALS: BP 129/63; PULSE 67; BMI 30.5
== END 2024-07-05 11:40 | disposition home or self-care (01) ==
PROVIDERS: PCP Physician Assistant; Visit Provider Surgery
DX: D17.21 Benign lipomatous neoplasm of skin and subcutaneous tissue of right arm (principal)
CPT/HCPCS: 99024

== ENCOUNTER → 2024-07-05 11:26 | Outpatient (BNVA) | payer MEDICAID, SELFPAY | PROVIDERS: PCP Physician Assistant; Visit Provider Surgery | DX: D17.21 Benign lipomatous neoplasm of skin and subcutaneous tissue of right arm (principal) | CPT/HCPCS: 99212 ==

== ENCOUNTER 2024-12-02 09:58 | Outpatient (AMB) | payer OTHER, SELFPAY ==
--- OUTSIDE RECORDS SUMMARY | 2024-12-02 10:01 | XMS_ITS | Clinical Summary ---
Author Organization [facility] ity Address [address] [place] [address] Care Team Providers Care Panel Fitter Name Role Phone Kiana Jennings Navid DPM Primary Care Provider Surgical History Surgery Date Site/Laterality Comments SECTION PROCEDURE: HISTORICAL DELIVERY STOMACH SURGERY 06/12/2019 PROCEDURE: OK UNLISTED PROCEDURE STOMACH; COMMENT: sleeve Medical History Medical History Date Comments Anxiety 03/25/2019 DX:Anxiety Eating disorder 05/24/2019 DX:Eating disord er Class 3 severe obesity due t o excess calories without serious comorbidity with body mass index (BMI) of 40.0 to 44.9 in adult 12/25/2018 DX:Class 3 severe obesity du e to excess calories without serious comorbidity with body mass index (BMI) of 40.0 to 44.9 in adult ([facility]) H. pylori infection 03/08/2019 DX:H. pylori infection Vitamin D deficiency 03/08/2019 DX:Vitamin D deficiency Family History Medical History Relation Name Comments Breast cancer Aunt Other: Gastric Cancer Grandparent Other: Heart transplant Mother Other: Gastric Sleeve Sister Relation Name Status Comments Aunt Father Grandparent Mother Sister Social History Tobacco Use Types Packs/Day Years Used Date Smoking Tobacco: Former Cigarettes Smokeless Tobacco: Never Alcohol Use Standard Drinks/Week Comments Yes 0 (1 standard drink = 0.6 oz pur e alcohol) Comments Unknown Sex and Gender Information Value Date Recorded Sex Assigned at Not on file Legal Sex Female 9:06 AM EST Gender Identity Not on file Sexual Orientation Not on file Obstetrics History Last Filed Vital Signs Vital Sign Reading Time Taken Comments Blood Pressure - - Pulse - - Temperature - - Respiratory Rate - - Oxygen Saturation - - Inhaled Oxygen Concentration - - Weight 78.9 kg (174 lb) 11/25/2021 8:19 AM EDT Height - - Body Mass Index - - Plan of Treatment Health Maintenance Due Date Last Done Comments DTaP,Tdap,and Td Vaccines (1 - Tdap) 2005 Hepatitis B Vaccines (1 of 3 - 19+ 3-dose series) 2005 Cervical Cancer Screening: P ap Smear 2007 Depression Screening 07/17/2022 HIV Screening 07/17/2022 Hepatitis C Screening 07/17/2022 Social Influencers of Health Screening 07/17/2022 COVID-19 Vaccine ( - 2023-2 5 season) 2024 Influenza Vaccine (Season Ended) 2025 HIB Vaccines Aged Out No longer eligi ble based on patient's age to complete this topic HPV Vaccines Aged Out No longer eligi ble based on patient's age to complete this topic Hepatitis A Vaccines Aged Out No long er eligible based on patient's age to complete this topic IPV Vaccines Aged Out No longer eligi ble based on patient's age to complete this topic MMR Vaccines Aged Out No longer eligi ble based on patient's age to complete this topic Meningococcal ACWY Vaccine Aged Out N o longer eligible based on patient's age to complete this topic Meningococcal B Vaccine Aged Out No l onger eligible based on patient's age to complete this topic Pneumococcal Vaccine: Pediat rics (0 to 5 Years) and At-Risk Patients (6 to 64 Years) Aged Out No longer eligible b ased on patient's age to complete this topic RSV Immunization Patients Un vale 20 months Aged Out No longer eligible b ased on patient's age to complete this topic Varicella Vaccines Aged Out No longer eligible based on patient's age to complete this topic Care Teams Panel Fitter Relationship Specialty Start Date End Date Kiana Jennings DPM [address] [facility] [address] [place] [address] PCP - General Podiatry 04/12/19
--- NOTE | 2024-12-02 10:14 | MHC.PC.OV ---
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 Accompanied by: Self / Same As Patient Allergies No Known Allergies Allergy (Verified 12/02/24 10:36) Medication List - Last Reconciled 12/02/24 by Mayur Snyder PA-C cholecalciferol (vitamin D3) 75 mcg (3 x 25 mcg (1,000 unit)) PO DAILY 90 days lactulose 10 grams (15 mL) PO BEDTIME 10 days multivitamin (Daily Multi-Vitamin tablet) 1 tab PO DAILY Tobacco use date assessed: 12/02/24 Dental Screening Dental Screen Date: 12/02/24 Did you have a dental visit in the last 12 months?: Yes Did you have a dental problem in the last 6 months where you did not have access to dental care?: No Was dental information given to patient?: Patient has dentist HPI annual exam HPI Details Deanna is a 39 y/o F here today for a PE visit. ? Patient has a past medical history significant for history of bariatric surgery, former smoker, anemia. .. .. History of bariatric surgery: Has a history bariatric surgery in 2019, unfortunately gaining weight back. Today's BMI of 31.6 .. Iron-deficiency anemia: Patient continues on sporadic use of her iron supplementation. Most recent CBC showing good iron levels though continue low hemoglobin. ? .. ? 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 Aponte)- PAP in 08/2019 was normal.? Vaccine: UTD tdap, up-to-date with COVID vaccines Laboratory Tests 02/22/21 05/28/24 15:00 10:57 Iron 25 L 31 25-OH Vitamin D To richy 33.4 30.5 L PFSH Medical History Lipoma of upper arm Surgical History S/P excision of lipoma (06/26/24) Hx of tubal ligation History of bariatric surgery History of section Family History Father No problems noted. Mother No problems noted. Maternal Aunt Breast cancer Maternal Grandfather Gastric cancer Social History (Updated 12/02/24 @ 10:39 by Mayur Snyder PA-C) Housing: Apartment Alcohol intake: current Alcohol intake frequency: holidays/special occasions only Alcohol type: wine Patient Tobacco Use Status: Former Tobacco user e-Cigarette/Vaping Use: Never Used Second Hand Smoke Exposure: No Substance Use Type: Marijuana service: No Current occupational status: employed and student Current occupation: [employer] speciality Cognitive needs: No Hearing needs: No Vision needs: Yes (glasses) Questionnaire PHQ-9 Over the last 2 weeks, how often have you been bothered by any of the following problems? 1. Little interest or pleasure in doing things: not at all 2. Feeling down, depressed, or hopeless: not at all 3. Trouble falling or staying asleep, or sleeping too much: not at all 4. Feeling tired or having little energy: not at all 5. Poor appetite or overeating: not at all 6. Feeling bad about yourself - or that you are a failure or have let yourself or your family down: not at all 7. Trouble concentrating on things, such as reading the newspaper or watching television: not at all 8. Moving or speaking so slowly that other people could have noticed. Or the opposite - being so fidgety or restless that you have been moving around a lot more than usual: not at all 9. Thoughts that you would be better off or of hurting yourself in some way: not at all Total score: 0 Depression Screening Interpretation: Negative Depression Screening Done: Yes 44875 - PHQ-9 Billing: Yes Source: Developed by Drs. Noah Greenwood, Esperanza Ayala, Isaac Robles and colleagues, with an educational meli from [employer]. Thrive Questionnaire Date Thrive assessed: 12/02/24 I am a: Patient What is your living situation today?: I have a steady place to live Within the past 12 months, did the food you bought not last and you didn't have the money to get more?: Never true Within the past 12 months, did you worry whether your food would run out before you got money to buy more?: Never true Do you have trouble paying for medicines?: No Do you have trouble getting transportation to medical appointments?: No Do you have trouble paying your heating and electricity bill?: No Do you have trouble taking care of your child, family member or friend?: No Do you have trouble with day-to-day activities such as bathing, preparing meals, shopping, managing finances, etc.?: No Are you currently unemployed and looking for a job?: No Are you interested in more education?: No Please select the resources that you would like help with: None Currently or been in a relationship where the following occur: No concerns reported THRIVE Score: 0 AUDIT C Alcohol Use Questionnaire (AUDIT-C) 1. How often do you have a drink containing alcohol?: 2-4 times a month 2. How many drinks containing alcohol do you have on a typical day when you are drinking?: 1 or 2 3. How often do you have six or more drinks on one occasion?: Less than monthly Total Score: 3 JHONY-7 AMB Questionnaire JHONY-7 Date JHONY - 7 assessed: 12/02/24 Feeling nervous, anxious, or on edge: 0 = Not at all Not being able to stop or control worryin = Not at all Worrying too much about different things: 0 = Not at all Trouble relaxin = Several days Being so restless that it is hard to sit still: 1 = Several days Becoming easily annoyed or irritable: 0 = Not at all Feeling afraid as if something awful might happen: 0 = Not at all Total JHONY-7 score (0-4 normal; 5-9 mild; 10-14 moderate; 15-21 severe): 2 Source: Developed by Drs. Noah Greenwood, Esperanza Ayala, Isaac Robles and colleagues, with an educational meli from [employer]. JHONY-7 Assessment Billing JHONY-7 Assessment Tool: JHONY-7 Assessment 84019 Review of Systems Const Denies body aches, Denies chills, Denies excessive sweating, Denies fatigue, Denies fever(s) and Denies headache(s) Eyes Denies blurry vision ENT Denies dysphagia, Denies vertigo, Denies dizziness, Denies headache(s), Denies hearing loss and Denies tinnitus Card Denies chest pain, Denies chest pain with activity, Denies syncope, Denies irregular heart rhythm and Denies dyspnea Resp Denies chest congestion, Denies cough, Denies hemoptysis, Denies dyspnea and Denies wheezing GI Denies abdominal pain, Denies melena, Denies hematochezia, Denies coffee ground emesis, Denies dysphagia, Denies diarrhea, Denies nausea and Denies vomiting Denies urinary frequency, Denies dysuria, Denies urinary hesitancy and Denies urinary urgency Musc Denies arthralgias, Denies limited range of motion, Denies muscle cramps and Denies muscle weakness Skin/Breast Denies rash and Denies skin ulcer Neuro Denies Abnormal speech present, Denies confusion, Denies vertigo, Denies dizziness, Denies syncope, Denies headache(s), Denies memory loss and Denies seizure-like activity Psych Denies anxiety, Denies confusion, Denies depression, Denies memory loss, Denies panic attacks and Denies paranoia Endo Denies excessive sweating, Denies fatigue, Denies flushing, Denies polydipsia and Denies polyuria Aller/Immun Denies wheezing Physical exam (Primary Care) Vital Signs: Last Vital Signs Temp 97.1 F 12/02/24 10:17 Pulse 69 12/02/24 10:17 BP 98/52 L 12/02/24 10:17 Pulse Ox 98 12/02/24 10:17 Oxygen Delivery Method Room Air 12/02/24 10:17 BMI result Body Mass Index 31.6 Tobacco/Smoking Status: Tobacco use Status Tobacco use date assessed 12/02/24 12/02/24 10:21 Patient Tobacco Use Status Former Tobacco user 12/02/24 10:16 e-Cigarette/Vaping Use Never Used 12/02/24 10:16 PHQ-9: PHQ-9 Score PHQ-9: Total score 0 12/02/24 10:21 Depression Screening Interpretation: Negative Thrive Assessment: Date of Thrive Assessment Date Thrive assessed 12/02/24 12/02/24 10:21 Currently or been in a relationship where the following occur: No concerns reported Const General: cooperative, comfortable, no acute distress, alert and awake; No confusion Orientation/consciousness: oriented to person, oriented to place, patient oriented x3 and No confusion HENMT Head: Yes normocephalic Ears: external ears normal and TM's normal bilaterally Face and sinus: No sinus tenderness Mouth: Normal oral and palatal mucosa present and tongue normal Teeth and gingiva: dentition normal and gingiva normal Throat: Yes posterior oropharynx normal, Yes tonsils normal and Yes uvula midline Eyes Conjunctivae: conjunctivae normal Sclerae: sclerae normal Pupils: Equal, round and reactive pupils present EOM: EOMs intact bilaterally Direct Ophthalmoscopy: No no photophobia Neck Neck: Yes no lymphadenopathy, No tender and Yes no JVD Thyroid: Thyroid normal Carotids: no bruits Chest Chest palpation & inspection: no tenderness Resp Effort & Inspection: normal respiratory effort, no audible wheezes, not labored and no stridor Auscultation: no crackles, no rales, no rhonchi and no wheezes Cardio Jugular venous distension: no JVD Rate: regular rate, not bradycardic and not tachycardic Rhythm: regular rhythm Bruits: no carotid bruits Peripheral pulses: Peripheral pulses 2+ throughout GI Inspection: Yes normal to inspection, No abdominal wall ecchymosis and No visible herniation Palpation (GI): Soft to palpation, nontender, no guarding, not rigid and No hepatosplenomegaly present Auscultation: normoactive bowel sounds General: Yes no CVA tenderness Back/Spine/Pelvis Back: no CVA tenderness and No back tenderness Cervical Spine: cervical ROM normal Thoracic/Lumbar Spine: thoracic and lumbar spine normal to inspection, straight leg raise negative bilaterally, No thoraco-lumbar ROM limited and No lumbar spinal tenderness Skin Lesions: no lesions Rashes: no rashes Wounds: no wounds Neuro General: oriented to person, oriented to place, patient oriented x3, CN's II-XI intact bilaterally and No confusion Cranial nerves: Yes Equal, round and reactive pupils present and Yes Normal accommodation reflex present Cognition (Neuro): normal cognition Speech: No Abnormal speech present Gait exam (Neuro): Normal gait present Motor exam (neuro): 5/5 motor strength present throughout Extrem Right upper extremity: full ROM; no cyanosis Left upper extremity: full ROM; no cyanosis Right lower extremity: no edema Left lower extremity: no edema Psych Appearance: grossly normal Mental Status: mental status grossly normal Affect: normal affect Attitude: cooperative Thought process: Normal thought process present Coding Level of Care Code Est Pt Prev Care 18-39y(40304) Diagnoses Annual physical exam Z00.00 JHONY (generalized anxiety disorder) F41.1 Class 1 obesity E66.811 Low hemoglobin D64.9 MDD (major depressive disorder), recurrent episode, moderate F33.1 Additional Codes JHONY-7 Assessment Billing - JHONY-7 Assessment Tool: JHONY-7 Assessment 75429 ([id number]) PHQ-9 - 59072 - PHQ-9 Billing: Yes ([id number]) Assessment & Plan Assessment & Plan (1) Annual physical exam: Code(s): Z00.00 - Encounter for general adult medical examination without abnormal findings Category: Medical Plan: As per HPI (2) JHONY (generalized anxiety disorder): Code(s): F41.1 - Generalized anxiety disorder Category: Medical Plan: Patient's JHONY-7 score 2, she is not interested in any medication or mental health therapy. (3) Class 1 obesity: Code(s): E66.811 - Obesity, class 1 Category: Medical Plan: Patient does understand her BMI is over 30 continue working on being more physically active and adapting to better eating habits to reduce her weight. (4) Low hemoglobin: Code(s): D64.9 - Anemia, unspecified Category: Medical Plan: Has a history of low hemoglobin, does take iron supplementation from time to time. Will recheck CBC and iron levels. (5) MDD (major depressive disorder), recurrent episode, moderate: Code(s): F33.1 - Major depressive disorder, recurrent, moderate Category: Medical Plan: Patient's PHQ-9 score 0, has a history of major depressive disorder though has been better as of late. She anticipates graduating from college this year in his happy about this. Orders: Orders TSH reflex Free T4 Today R79.89 - Other specified abnormal findings of blood chemistry Complete Blood Count no Diff Today D64.9 - Anemia, unspecified IRON PROFILE Today D50.9 - Iron deficiency anemia, unspecified, D64.9 - Anemia, unspecified Comprehensive [place]. Panel Fast Today Z13.1 - Encounter for screening for diabetes mellitus
[2024-12-02 10:17] VITALS: BP 98/52; PULSE 69; TEMP 36.2; O2SAT 98; BMI 31.6
== END 2024-12-02 10:52 | disposition home or self-care (01) ==
PROVIDERS: PCP Physician Assistant; Visit Provider Physician Assistant
DX: Z00.00 Encounter for general adult medical examination without abnormal findings (principal); F33.1 Major depressive disorder, recurrent, moderate; Z68.30 Body mass index [BMI] 30.0-30.9, adult; E66.811 Obesity, class 1; F41.1 Generalized anxiety disorder; D64.9 Anemia, unspecified

== ENCOUNTER → 2024-12-02 09:58 | Outpatient (BNVA) | payer OTHER, SELFPAY | PROVIDERS: PCP Physician Assistant; Visit Provider Physician Assistant | DX: Z00.00 Encounter for general adult medical examination without abnormal findings (principal); F41.1 Generalized anxiety disorder; E66.811 Obesity, class 1; Z68.31 Body mass index [BMI] 31.0-31.9, adult; D50.9 Iron deficiency anemia, unspecified; F33.1 Major depressive disorder, recurrent, moderate; Z98.84 Bariatric surgery status; Z87.891 Personal history of nicotine dependence | CPT/HCPCS: 96127 ==